=== PATIENT | female | born 1945 | race Two or more races ===

== ENCOUNTER 2023-01-27 12:03 | Emergency (ER) | payer MEDICARE, OTHER ==
[~2023-01-27] VITALS: Ht 165.1 cm; Wt 75.0 kg
[2023-01-27 12:30] VITALS: TEMP 98.9; O2SAT 99
[2023-01-27] MEDS ORDERED: MORPHINE SULFATE 4 MG/ML SYR/VIAL IM ONE (15:45)
[2023-01-27] MEDS ORDERED: ONDANSETRON ODT 4 MG TAB PO ONE (15:45)
[2023-01-27] MEDS ORDERED: MORPHINE SULFATE INJ 2 MG/ml SYRG IM ONE (17:15)
[2023-01-27 17:43] VITALS: BP 136/64; PULSE 67; RESP 20
== END 2023-01-27 18:14 | disposition home or self-care (01) ==
LOC: ER 12:03 → EDBD 12:03 → ER 18:00
DX: M25.551 Pain in right hip (principal)
CPT/HCPCS: 72192; 96372; 99285; J2270; Q0162

== ENCOUNTER 2023-02-06 17:44 | Emergency (ER) | payer MEDICARE | END 2023-02-06 18:34 | disposition left against medical advice (07) | LOC: ER 17:44 | DX: Z04.3 Encounter for examination and observation following other accident (principal); Z53.21 Procedure and treatment not carried out due to patient leaving prior to being seen by health care provider; W19.XXXA Unspecified fall, initial encounter; Y93.89 Activity, other specified; Y92.89 Other specified places as the place of occurrence of the external cause; Y99.8 Other external cause status ==